=== PATIENT | female | born 1985 ===

== ENCOUNTER 2018-05-01 08:42 | Emergency (ER) | payer OTHER ==
--- NOTE | 2018-05-01 09:35 | ED PDOC ---
HPI: Back Time Seen by Provider: 05/01/18 09:12 Chief Complaint (Nursing): Female Genitourinary Chief Complaint (Provider): Back Pain History Per: Patient History/Exam Limitations: no limitations Onset/Duration Of Symptoms: Days Current Symptoms Are (Timing): Still Present Quality Of Discomfort: "Pain" Additional Complaint(s): 32 year old female presents to the ED for an evaluation of back pain. States she has pain on the right side with associated symptoms of fever and dysuria onset for 2 days. Denies vomiting, trauma or fall. PMD: No Family Provider Past Medical History Reviewed: Historical Data, Nursing Documentation, Vital Signs Vital Signs: Last Vital Signs Temp 98.1 F 05/01/18 09:09 Pulse 61 05/01/18 09:09 Resp 18 05/01/18 09:09 BP 104/64 05/01/18 09:09 Pulse Ox 98 05/01/18 09:09 - Medical History PMH: No Chronic Diseases - Surgical History Surgical History: - Family History Family History: States: Unknown Family Hx - Social History Current smoker - smoking cessation education provided: No Alcohol: None Drugs: Denies - Home Medications Home Medications: Ambulatory Orders Medication Instructions Recorded Naproxen [Naprosyn] 500 mg PO Q12H #20 tab 05/01/18 Sulfamethoxazole/Trimethoprim 1 tab PO BID #20 tab 05/01/18 [Bactrim DS 800 mg-160 mg] - Allergies Allergies/Adverse Reactions: Allergies Allergy/AdvReac Type Severity Reaction Status Date / Time No Known Allergies Allergy Verified 05/01/18 09:09 Review of Systems ROS Statement: Except As Marked, All Systems Reviewed And Found Negative Constitutional: Positive for: Fever. Negative for: Other (trauma or fall) Gastrointestinal: Negative for: Vomiting Genitourinary Female: Positive for: Dysuria Musculoskeletal: Positive for: Back Pain (right side) Physical Exam - Reviewed Nursing Documentation Reviewed: Yes Vital Signs Reviewed: Yes - Physical Exam Appears: Positive for: Non-toxic, No Acute Distress Head Exam: Positive for: ATRAUMATIC, NORMAL INSPECTION, NORMOCEPHALIC Skin: Positive for: Normal Color, Warm, Dry Eye Exam: Positive for: Normal appearance Back: Positive for: R CVA Tenderness Neurologic/Psych: Positive for: Alert, Oriented (x3). Negative for: Motor/ Sensory Deficits - Laboratory Results Result Diagrams: 05/01/18 09:50 05/01/18 09:50 - ECG O2 Sat by Pulse Oximetry: 98 (RA) Pulse Ox Interpretation: Normal Medical Decision Making Medical Decision Making: Time: 914 Initial Impression: back pain Initial Plan: --VBG Shock Panel --Abdominal & Pelvis w/o PO or IV Contrast [CT] --CMP --ED Urine --ED Urine Dipstick --CBC w/ Differential --Toradol 30mg --Blood Culture --Urine Culture --Reevaluation Scribe Attestation: Documented by Lolis West, acting as a scribe for Quentin Gonzalez MD Provider Scribe Attestation: All medical record entries made by the Scribe were at my direction and personally dictated by me. I have reviewed the chart and agree that the record accurately reflects my personal performance of the history, physical exam, medical decision making, and the department course for this patient. I have also personally directed, reviewed, and agree with the discharge instructions and disposition. Disposition - Clinical Impression Clinical Impression: Urinary tract infection, Dysuria - Patient ED Disposition Is Patient to be Admitted: No Counseled Patient/Family Regarding: Studies Performed, Diagnosis, Need For Followup, Rx Given - Disposition Referrals: [facility] [Outside] Disposition: Routine/Home Disposition Time: 11:02 Condition: FAIR Prescriptions: Naproxen [Naprosyn] 500 mg PO Q12H #20 tab Sulfamethoxazole/Trimethoprim [Bactrim DS 800 mg-160 mg] 1 tab PO BID #20 tab Instructions: Urinary Tract Infections in Adults Forms: [employer] (Slovenian) Print Language: WELSH
[2018-05-01 09:59] LABS: VENOUS BLOOD GAS BASE EXCESS 2.3 mmol/L (0.0-2.0); VENOUS BLOOD GAS PCO2 56 mmHg (40-60); VENOUS BLOOD GAS PO2 24 mm/Hg (30-55); VENOUS BLOOD PH 7.33 (7.32-7.43)
[2018-05-01 10:06] LABS: BASO % 0.3 % (0.0-2.0); EOS # 0.4 K/uL (0.0-0.7); EOS % 5.7 % (0.0-4.0); HEMOGLOBIN 13.9 g/dL (12.0-16.0); LYMPH # 2.3 K/uL (1.0-4.3); LYMPH % 30.8 % (20.0-40.0); MEAN CELL VOLUME 87.2 fl (81.0-99.0); MEAN CORPUSCULAR HEMOGLOBIN 30.5 pg (27.0-31.0); MEAN PLATELET VOLUME 8.6 fl (7.2-11.7); MONO # 0.4 K/uL (0.0-0.8); MONO % 5.9 % (0.0-10.0); NEUT # 4.2 K/uL (1.8-7.0); NEUT % 57.3 % (50.0-75.0); NRBC % 0.1 % (0.0-0.0); RBC 4.57 Mil/uL (3.80-5.20); RED CELL DISTRIBUTION WIDTH 12.9 % (11.5-14.5); WHITE BLOOD COUNT 7.3 K/uL (4.8-10.8)
--- NOTE | 2018-05-01 10:43 | CT ---
Date of service: 05/01/2018 PROCEDURE: CT Abdomen and Pelvis without intravenous contrast HISTORY: r/o kidney stone COMPARISON: None. TECHNIQUE: Technique. Contrast dose: Without IV or oral contrast Radiation dose: Total exam DLP = 350 mGy-cm. This CT exam was performed using one or more of the following dose reduction techniques: Automated exposure control, adjustment of the mA and/or kV according to patient size, and/or use of iterative reconstruction technique. FINDINGS: LOWER THORAX: Unremarkable. LIVER: Unremarkable. No gross lesion or ductal dilatation. GALLBLADDER AND BILE DUCTS: Unremarkable. PANCREAS: Unremarkable. No gross lesion or ductal dilatation. SPLEEN: Unremarkable. ADRENALS: Unremarkable. No mass. KIDNEYS AND URETERS: Unremarkable. No hydronephrosis. No solid mass. VASCULATURE: Unremarkable. No aortic aneurysm. BOWEL: Moderate stool retention. Abort. No obstruction. No gross mural thickening. APPENDIX: There are multiple small calcifications throughout the elongated appendix no gross dilatation of the same is seen. Appendiceal wall appears probably top-normal. No periappendiceal inflammatory change appreciated. PERITONEUM: Unremarkable. No free fluid. No free air. LYMPH NODES: Unremarkable. No enlarged lymph nodes. BLADDER: Unremarkable. REPRODUCTIVE: Each adnexae is borderline prominent probably relating to physiologic changes in the ovaries. A 1 mm calcification projects over the right adnexa probably ovarian in etiology. No obstructing right urolithiasis suggested. . BONES: No acute fracture. OTHER FINDINGS: None. IMPRESSION: No urolithiasis appreciated. No hydronephrosis. Elongated appendix with multiple appendicoliths and top-normal appendiceal wall thickness. No dilated appendix. No periappendiceal inflammatory changes. Clinical correlation and follow-up recommended. Probable dystrophic benign type calcifications over the right ovary. Moderate stool retention. No bowel obstruction. No free air.
[2018-05-01 10:50] LABS: ALB/GLOB RATIO 1.4 (1.0-2.1); ALBUMIN 4.1 g/dL (3.5-5.0); ALT/SGPT 75 U/L (9-52); AST/SGOT 51 U/L (14-36); BLOOD UREA NITROGEN 13 mg/dl (7-17); CALCIUM 8.8 mg/dL (8.4-10.2); GFR AFRICAN-AMERICAN > 60; GFR NON-AFRICAN AMERICAN > 60
[2018-05-01 11:14] VITALS: BP 100/61; PULSE 60; RESP 15; TEMP 98.7; O2SAT 100
== END 2018-05-01 11:12 | disposition home or self-care (01) ==
LOC: H.ER 08:42
DX: N39.0 Urinary tract infection, site not specified (principal)
CPT/HCPCS: 74176; 80053; 81025; 82803; 85025; 87040; 87086; 96374; 99283; J1885